=== PATIENT | male | born 2000 | race Hispanic/Latino ===

== ENCOUNTER 2024-10-04 21:49 | Emergency (ER) | payer OTHER ==
[~2024-10-04] VITALS: Ht 170.2 cm; Wt 63.5 kg
[2024-10-04 22:00] VITALS: PULSE 47; RESP 19; TEMP 99.1
[2024-10-04] MEDS ORDERED: CEPHALEXIN500 MG PO (22:19)
[2024-10-04 23:13] VITALS: BP 122/72; PULSE 49; RESP 17; TEMP 98.9; O2SAT 98
[2024-10-04] MEDS: TETANUS/DIPHTHERIA TOX ADULT 0.5 ML SYR IM STA (23:25)
== END 2024-10-04 23:15 | disposition home or self-care (01) ==
LOC: ER 21:58
DX: S01.511A Laceration without foreign body of lip, initial encounter (principal); W21.89XA Striking against or struck by other sports equipment, initial encounter; Y93.66 Activity, soccer; Y92.322 Soccer field as the place of occurrence of the external cause; Y99.8 Other external cause status; Z23 Encounter for immunization
CPT/HCPCS: 90471; 90714; 99283

== ENCOUNTER 2024-10-18 16:55 | Emergency (ER) | payer OTHER ==
[~2024-10-18] VITALS: Ht 170.2 cm; Wt 63.5 kg
[~2024-10-18 16:55] MED LIST: CEPHALEXIN500 MG PO
[2024-10-18 17:49] VITALS: PULSE 65; RESP 18; TEMP 98.2; O2SAT 99
== END 2024-10-18 19:19 | disposition home or self-care (01) ==
LOC: ER 19:18
DX: Z48.02 Encounter for removal of sutures (principal)
CPT/HCPCS: 99282